=== PATIENT | female | born 1955 | race Caucasian/White ===

== ENCOUNTER 2016-06-03 | Outpatient (CLI) | payer OTHER | END 2016-06-03 17:39 | disposition critical access hospital (66) | CPT/HCPCS: A0425; A0429 ==

== ENCOUNTER 2016-06-03 | Emergency (ER) | payer OTHER | END 2016-06-03 18:39 | disposition home or self-care (01) ==

== ENCOUNTER 2020-03-29 20:59 | Outpatient (CLI) | payer MEDICARE, OTHER | END 2020-03-29 21:00 | disposition critical access hospital (66) | LOC: EMS 20:59 | PROVIDERS: ATTEND Surgery | DX: M25.572 Pain in left ankle and joints of left foot (principal) | CPT/HCPCS: A0425; A0429 ==

== ENCOUNTER 2020-03-29 22:04 | Emergency (ER) | payer MEDICARE, OTHER ==
--- NOTE | 2020-03-29 22:11 | ED Physician Documentation ---
PD HPI LOWER EXT INJURY - Stated complaint Stated Complaint: GLF - History obtained from History obtained from: Patient, EMS - History of Present Illness PD HPI LOW EXT INJURY LOCATION: Left, Ankle Type of injury: Twist (she was stepping down few steps with dog on lease and slipped, with twist of ankle. Pain with trying to step/stand. 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 No: Weakness, Numbness Similar symptoms before: Has not had sx before Recently seen: Not recently seen Review of Systems Constitutional: denies: Fever Nose: denies: Rhinorrhea / runny nose, Congestion Throat: denies: Sore throat Cardiac: denies: Chest pain / pressure Respiratory: denies: Cough GI: denies: Abdominal Pain, Nausea, Vomiting Neurologic: denies: Focal weakness, Numbness, Altered mental status, Head injury PD PAST MEDICAL HISTORY - Past Medical History Cardiovascular: None Respiratory: None Neuro: None Endocrine/Autoimmune: None Musculoskeletal: None - Present Medications Home Medications: Ambulatory Orders Medication Instructions Recorded Confirmed Fluticasone [Flonase] 1 spray NS Q8HR PRN 06/03/16 03/29/20 Hydrocodone/Acetaminophen [Rosamond 1 each PO Q6H PRN #15 tablet 03/29/20 5-325 Tablet] - Allergies Allergies/Adverse Reactions: Allergies Allergy/AdvReac Type Severity Reaction Status Date / Time epinephrine Allergy Unknown Verified 03/29/20 22:23 PD ED PE NORMAL - Vitals Vital signs reviewed: Yes - General General: Alert and oriented X 3, No acute distress, Well developed/nourished - HEENT HEENT: Atraumatic - Neck Neck: Supple, no meningeal sign, No bony TTP - Derm Derm: Normal color, Warm and dry - Extremities Extremities: Other (left ankle with mild swelling and tenderness both medially and laterally. Achilles firm and intact. Distal foot not tender. Proximal lower leg not tender. ) - Neuro Neuro: Alert and oriented X 3, No motor deficit, No sensory deficit, Normal speech Results - Vitals Vitals: Vital Signs - 24 hr 03/29/20 03/29/20 22:05 23:13 Temperature 36.7 C 36.5 C Heart Rate 86 83 Respiratory 14 18 Rate Blood Pressure 190/106 H 143/98 H O2 Saturation 97 100 Oxygen O2 Source Room air - Rads (name of study) left ankle Radiology: Prelim report reviewed (trimalleolar fracture without dislocation. ), See rad report Procedures - Splint (location) ankle fracture left Splint applied by: Tech Type of splint: Fiberglass, Posterior, Stirrup Other: Patient tolerated well, No complications, Neurovascular intact, Crutches provided (and Rx for knee scooter) PD MEDICAL DECISION MAKING - ED course Complexity details: reviewed results (trimalleolar fracture without dislocation.), considered differential (will get xray for suspected ankle fracture. She declined pain meds here. ), d/w patient, d/w automotive service consultant (CLARIFIER initially tried Dr. Bowie but no answer, then appeared not amortization clerk, but had Ortho call schedule had just not updated. So I did not talk with Dr. Bowie this evening. Will refer to Ortho Clinic. ) Departure - Departure Disposition: 01 Home, Self Care Clinical Impression: Trimalleolar fracture of ankle, closed Qualifiers: Encounter type: initial encounter Laterality: left Qualified Code(s): S82.852A - Displaced trimalleolar fracture of left lower leg, initial encounter for closed fracture Condition: Stable Record reviewed to determine appropriate education?: Yes Instructions: ED Fx Ankle General Follow-Up: Hernan Bowie MD [Provider Admit Priv/Credential] - Prescriptions: Hydrocodone/Acetaminophen [Rosamond 5-325 Tablet] 1 each PO Q6H PRN #15 tablet PRN Reason: Pain Comments: Ice elevate and rest the ankle often to minimize swelling. Crutches or knee scooter for nonweightbearing. Keep the splint in place. Use of anti-inflammatories such as naproxen or ibuprofen 2 to 3 tablets twice daily. To that add Tylenol 500 mg every 4 hours if needed for pain or hydrocodone if needed for worse pain. Call the orthopedic office tomorrow for an appointment for next week for follow- up. Discharge Date/Time: 03/29/20 23:48
[2020-03-29] MEDS ORDERED: HYDROcod/ACET 5/325 Prepack 4 PO STA (22:54)
[2020-03-29 23:14] VITALS: BP 143/98
--- NOTE | 2020-03-30 08:30 | XRAY Report ---
PROCEDURE: Ankle 3 View LT INDICATIONS: fell and twisted ankle TECHNIQUE: 3 views of the ankle were acquired. COMPARISON: None FINDINGS: Bones: Displaced fractures involving the lateral malleolus, medial malleolus and posterior malleolus. There is normal alignment of the ankle mortise. Soft tissues: No tibiotalar joint effusion. Achilles tendon appears normal. IMPRESSION: Trimalleolar left ankle fracture. Reviewed by: Diamond Boss MD, PhD on 03/30/2020 8:29 AM [facility] Approved by: Diamond Boss MD, PhD on 03/30/2020 8:29 AM [facility] Station ID: [id number]
== END 2020-03-29 23:48 | disposition home or self-care (01) ==
LOC: EDUNIT# → ED 22:04
DX: S82.852A Displaced trimalleolar fracture of left lower leg, initial encounter for closed fracture (principal); W00.1XXA Fall from stairs and steps due to ice and snow, initial encounter; Y93.K1 Activity, walking an animal; Y92.008 Other place in unspecified non-institutional (private) residence as the place of occurrence of the external cause
CPT/HCPCS: 29515; 99284

== ENCOUNTER 2020-04-05 06:15 | Day surgery (SDC) | payer MEDICARE, OTHER ==
[2020-04-05] MEDS ORDERED: ACETAMINOPHEN 1,000 MG/100 ML 100 ML IV ONE (06:30)
[2020-04-05] MEDS ORDERED: CELECOXIB 100 MG CAPSULE PO ONE (06:30)
[2020-04-05] MEDS ORDERED: ceFAZolin 2 GM/50 ML 2 GM/50 ML BAG IV ONE (06:30)
[2020-04-05] MEDS ORDERED: LIDOCAINE 2%-EPI 1:100000 20 ML MDV ONE (07:04)
[2020-04-05] MEDS ORDERED: BACITRACIN ZINC OINT 1 PACKET TOP ONE ×2 (07:05→08:29)
[2020-04-05] MEDS ORDERED: BUPIVACAINE 0.5%-EPI 1:200000 PF 30 ML VIAL ONE (07:05)
[2020-04-05] MEDS ORDERED: MIDAZOLAM 2 MG/2 ML VIAL ONE (07:10)
[2020-04-05] MEDS ORDERED: fentaNYL 100 MCG/2 ML VIAL ONE ×3 (07:10→10:08)
[2020-04-05] MEDS ORDERED: LIDOCAINE-MPF 2% 5 ML VIAL ONE (07:11)
[2020-04-05] MEDS ORDERED: PROPOFOL 200 MG/20 ML VIAL IVP ONE (07:11)
[2020-04-05] MEDS ORDERED: ROPIVACAINE 0.5% PF 20 ML AMPULE ONE (07:15)
--- NOTE | 2020-04-05 07:27 | ANESTHESIA ---
Pre-Anesthesia VS, & Labs - Diagnosis left trimalleolar fracture - Procedure ORIF left ankle Vital Signs: Temp Pulse Resp BP Pulse Ox 36.3 C L 81 20 152/93 H 97 04/05/20 06:30 04/05/20 06:30 04/05/20 06:30 04/05/20 06:30 04/05/20 06:30 Height: 5 ft 3 in Weight (kg): 89.5 kg Body Mass Index: 34.9 BMI Classification: Obese - NPO >8 hours - Is Patient ?: No - Lab Results Current Lab Results: Laboratory Tests 04/05/20 07:15: POC Whole Bld Glucose 128 H Home Medications and Allergies Fluticasone [Flonase] 1 spray NS Q8HR PRN 06/03/16 Allergies/Adverse Reactions: Allergies Allergy/AdvReac Type Severity Reaction Status Date / Time epinephrine Allergy Unknown Verified 03/29/20 22:23 Anes History & Medical History - Anesthetic History Anesthesia Complications: reports: No previous complications - Medical History Cardiovascular: reports: Hypertension Pulmonary: reports: Sleep apnea Gastrointestinal: reports: None Urinary: reports: None Neuro: reports: None Musculoskeletal: reports: None Endocrine/Autoimmune: reports: None Skin: reports: None Smoking Status: Never smoker History of Cancer?: No - Surgical History Eyes Ears Nose Throat (EENT): Other Gynecologic: section Exam General: Alert Dental: WNL Mouth Openin Fingerbreadth Neck Mobility: Normal Mallampati classification: II Thyromental Distance: greater than 6 cm Respiratory: Lungs clear Cardiovascular: Regular rate, Normal S1, Normal S2 Plan Anesthesia Type: General Consent for Procedure(s) Verified and Reviewed: Yes Code Status: Attempt Resuscitation ASA classification: 2-Mild systemic disease Is this case an emergency?: No
[2020-04-05 07:31] LABS: C. PNEUMONIAE- RESP PCR PANEL NOT DETECTED
[2020-04-05] MEDS ORDERED: DEXAMETHASONE 4 MG/ML VIAL ONE (08:21)
[2020-04-05] MEDS ORDERED: ONDANSETRON 4 MG/2 ML VIAL ONE (08:21)
[2020-04-05] MEDS ORDERED: ePHEDrine 50 MG/ML AMP IVP ONE (08:21)
[2020-04-05] MEDS ORDERED: SODIUM CHLORIDE 0.9% 10 ML ONE (08:22)
[2020-04-05] MEDS ORDERED: BUPIVACAINE 0.5%-EPI 1:200000 PF 30 ML VIAL SUBQ ONE (08:28)
[2020-04-05] MEDS ORDERED: LIDOCAINE MPF 2%-EPI 1:200000 20 ML VIAL SUBQ ONE (08:29)
[2020-04-05] MEDS ORDERED: ATROPINE ABBOJECT 1 MG/10 ML SYRINGE IVP PRN (09:30)
[2020-04-05] MEDS ORDERED: NALOXONE 0.4 MG/ML VIAL IVP PRN (09:30)
[2020-04-05] MEDS ORDERED: ePHEDrine 50 MG/ML VIAL IVP PRN (09:30)
[2020-04-05] MEDS ORDERED: HYDROmorphone 0.5 MG/0.5 ML SYRINGE IVP PRN (09:30)
[2020-04-05] MEDS ORDERED: ONDANSETRON 4 MG/2 ML VIAL IVP PRN (09:30)
[2020-04-05] MEDS ORDERED: METOCLOPRAMIDE 10 MG/2 ML VIAL IVP PRN (09:30)
[2020-04-05] MEDS ORDERED: MORPHINE 2 MG/ML CARPUJECT IVP PRN (09:30)
[2020-04-05] MEDS ORDERED: fentaNYL 100 MCG/2 ML VIAL IVP PRN (09:30)
[2020-04-05] MEDS ORDERED: LACTATED RINGERS 1,000 ML IV SCH (10:00)
[2020-04-05] MEDS ORDERED: BUPIVACAINE 0.25% PF 30 ML VIAL SUBQ ONE ×2 (10:54→11:12)
--- NOTE | 2020-04-05 11:00 | XRAY Report ---
PROCEDURE: OR C-Arm Procedure INDICATIONS: LEFT ANKLE ORIF TECHNIQUE: 3 intraoperative views of left ankle were obtained. COMPARISON: Ankle radiograph dated 03/29/2020. FINDINGS: Intraoperative radiograph of left ankle shows internal fixation of previously noted trimalleolar frac ture with fixation hardware is seen in distal fibular shaft/lateral malleolus, medial malleolus and p osterior malleolus. Ankle alignment is near-anatomic. IMPRESSION: Post ORIF changes in ankle joint with near-anatomic ankle alignment. Reviewed by: Philip Colón MD on 04/05/2020 10:59 AM PST Approved by: Philip Colón MD on 04/05/2020 10:59 AM PST Station ID: [id number]
[2020-04-05] MEDS ORDERED: BUPIVACAINE 0.25% PF 30 ML VIAL ONE (11:02)
[2020-04-05] MEDS ORDERED: BACITRACIN ZINC OINT 14 GM TOP ONE (11:08)
--- NOTE | 2020-04-05 11:29 | OPERATIVE REPORT ---
Operative Report - General Procedure Date: 04/05/20 Planned Procedure: Open reduction internal fixation trimalleolar fracture left ankle Pre-Op Diagnosis: Unstable, displaced trimalleolar fracture left ankle Procedure Performed: Open reduction internal fixation trimalleolar fracture left ankle including medial malleolus, lateral malleolus and posterior malleolus using Gu[employer] internal fixation; cancellous lag screw for posterior malleolus, 2 cancellous lag screws for medial malleolus, locking posterolateral fibular plate Post Op Diagnosis: Same as preoperative diagnosis - Procedure Note Primary Surgeon: Tripp Yu MD Secondary Surgeon: Brent REINA Anesthesia Provider: Ankush Anesthesia Technique: General ET tube, Regional block Estimated Blood Loss (mL): 50 Indications: This is a ambulatory 65-year-old relatively healthy woman with a fall that occurred last week. She sustained an isolated injury to her left ankle. She has been splinted, been nonweightbearing and elevating the left ankle. She has had a preoperative Covid testing. She has isolated pain, swelling, tenderness and limited motion left ankle. She has abnormal radiographs showing fractures of the medial, lateral and posterior malleoli.The ankle mortise was felt to be unstable to left ankle. Findings: The fracture of the fibula was above the ankle mortise and was in a Bleich fracture extending from posterior and distal to anterior and proximal. The fracture of the medial malleolus was at and just above the joint line, transverse in orientation. The posterior malleolus was a vertical fracture. There was mild comminution to the fibular fracture site. There was superficial abrasion about a centimeter to the medial dome of the left talus. Complications: None noted - Other Other Information/Narrative: Patient was brought to the operating room. She was given a popliteal and saphenous nerve block. She was placed in a supine position. A general an esthetic with endotracheal tube was administered by our retail project merchandiser. The left leg was placed on a padded bolster. A pneumatic tourniquet was applied to the proximal left thigh over cast padding and secured with a U drape. The left lower extremity was prepped and draped in a sterile manner in the usual fashion. A timeout procedure was performed by the entire operating room team and all were in agreement. The left leg was exsanguinated with a rubber bandage. The thigh tourniquet was elevated 250 mmHg. An incision was made on the lateral aspect the left ankle beginning from the tip of the lateral malleolus and extending it proximally for several centimeters. The incision was made on the posterior border of the fibula. The peroneal tendon was protected. The fracture site was identified. Fracture hematoma was removed with a curette and saline irrigation. The fibular fracture was reduced over a sterile bump. The fracture was then secured with a bone clamp and a intramedullary K wire inserted from the tip of the lateral malleolus. Proximally 7 hole posterolateral locking plate was then applied to the fibula. This plate seemed to span the fracture and give good stability with locking holes being utilized distally and a combination of both nonlocking and locking screws proximally. The fixation of the fracture was checked intermittently with the C arm image intensifier. The fracture stability and alignment looks excellent. Next to the medial malleolus was approached with a longitudinal medial incision beginning above the joint line and extending just below the medial malleolus distally. The saphenous vein was protected. A medial arthrotomy was made to visualize the fracture and inspect the ankle joint. A drill hole was made proximal to the fracture and a bone clamp was used to close the fracture gap with compression. K wires for the cannulated screws were then inserted from the tip of the medial malleolus and across the fracture. 2 wires were inserted and appropriate cancellous lag screws were then inserted to stabilize the medial malleolar fracture. The medial malleolar fracture was anatomically reduced on radiographs and also verified at the joint line through the medial arthrotomy incision. The ankle mortise was stressed with external rotation and the syndesmosis appeared to be stable. There was slight displacement of the posterior malleolar fracture. For this reason, a percutaneous approach was utilized to stabilize the posterior malleolar fracture. A 1 cm anterolateral incision was made over the distal tibia. A K wire was then inserted for cannulated screw using C arm image intensifier to direct the guidepin in biplanar and obilique images. Once the guidepin had been inserted appropriately, depth was obtained and a 4.0 mm can cellous lag screw was inserted that engaged the fracture site and posterior malleolus with anatomic alignment. The ankle mortise was then stressed and found to be stable. The wounds were thoroughly irrigated. Each wound was closed with 2 O strata fix suture and stainless steel jordan. Bacitracin, Xeroform, cast padding, thick cotton and plaster stirrup for short leg splint was applied and secured with Brando wrap. Tourniquet time was 85 minutes. She received 2 g of Ancef and tolerated the procedure well.A physician retail sales assistant was utilized to help with prepping and draping, positioning, retraction of vital structures, assistance in reduction and application of internal fixation left ankle
[2020-04-05] MEDS ORDERED: LACTATED RINGERS 20 ML IV ONE (11:52)
[2020-04-05] MEDS ORDERED: HYDROcod/ACETAM 5/325 MG TABLET PO PRN (12:02)
[2020-04-05] MEDS ORDERED: HYDROcod/ACETAM 10 MG/325 MG TABLET PO PRN (12:02)
[2020-04-05] MEDS ORDERED: KETOROLAC 15 MG/ML VIAL IVP STA (12:02)
[2020-04-05 12:49] VITALS: BP 153/90
--- NOTE | 2020-04-05 13:03 | ANESTHESIA POST OP EVALUATION ---
Anesthesia Post Eval - Post Anesthesia Eval Vitals: Last Vital Signs Temp 36.2 C L 04/05/20 12:38 Pulse 92 04/05/20 12:49 Resp 14 04/05/20 12:49 BP 153/90 H 04/05/20 12:49 Pulse Ox 96 04/05/20 12:49 CV Function Including HR & BP: positive: Stable Pain Control: positive: Satisfactory (no pain) Nausea & Vomiting: positive: Negative Mental Status: positive: Baseline Respiratory Status: Airway Patent Hydration Status: Satisfactory Anesthesia Complications: positive: None
== END 2020-04-05 06:16 | disposition home or self-care (01) ==
LOC: SDS 06:15
PROVIDERS: ATTEND Orthopaedic Surgery
DX: S82.852A Displaced trimalleolar fracture of left lower leg, initial encounter for closed fracture (principal); X50.1XXA Overexertion from prolonged static or awkward postures, initial encounter; Y93.K1 Activity, walking an animal; I10 Essential (primary) hypertension; G47.30 Sleep apnea, unspecified; Z20.828 Contact with and (suspected) exposure to other viral communicable diseases; E66.9 Obesity, unspecified; Z68.34 Body mass index [BMI] 34.0-34.9, adult; Z87.891 Personal history of nicotine dependence
CPT/HCPCS: 27823; A9270; C1713; J0131; J0690; J7120; 0202U

== ENCOUNTER 2020-05-19 18:41 | Outpatient (CLI) | payer MEDICARE, OTHER ==
--- NOTE | 2020-05-22 16:31 | XRAY Report ---
PROCEDURE: Ankle 3 View LT INDICATIONS: DISPLACED TRIMALLEOLAR FX OF L LOWER LEG TECHNIQUE: 3 views of the ankle were acquired. COMPARISON: X-ray ankle 03/29/2020 FINDINGS: Bones: ORIF of medial and lateral malleolar fractures is noted. Hardware is intact with good anatomic alignment. Posterior malleoli or fracture is also present, stable in alignment. Ankle mortise is nor angelo aligned. No suspicious bony lesions. Soft tissues: No tibiotalar joint effusion. Achilles tendon appears normal. IMPRESSION: Trimalleolar with fixation as above. Reviewed by: Laura Bowen MD on 05/22/2020 4:29 PM PST Approved by: Laura Bowen MD on 05/22/2020 4:29 PM PST Station ID: [id number]
== END 2020-05-19 23:59 | disposition home or self-care (01) ==
LOC: DI.N 18:41
PROVIDERS: ATTEND Orthopaedic Surgery
DX: S82.852A Displaced trimalleolar fracture of left lower leg, initial encounter for closed fracture (principal)

== ENCOUNTER 2021-03-13 12:45 | Outpatient (CLI) | payer MEDICARE, OTHER ==
--- NOTE | 2021-03-13 14:30 | XRAY Report ---
PROCEDURE: Ankle 3 View LT INDICATIONS: DISPLACED TRIMALLEOLAR FX OF L LOWER LEG TECHNIQUE: 3 views of the ankle were acquired. COMPARISON: 05/19/2020 FINDINGS: Bones: Again noted is prior ORIF of distal fibular shaft and medial malleolus. No gross hardware loos ening or failure. No acute fracture or dislocation. Ankle mortise is normally aligned. Osteoarthritic changes are noted in tibiotalar and subtalar joints. Well-defined plantar calcaneal enthesophyte is seen. No suspicious bony lesions. Soft tissues: No tibiotalar joint effusion. Achilles tendon appears normal. IMPRESSION: Post-ORIF changes in ankle joint unchanged from prior study. No gross hardware complicat ion. No acute fracture or dislocation. Intact ankle mortise. Ankle and hindfoot joint osteoarthritis. Well-defined calcaneal enthesophyte. Reviewed by: Philip Colón MD on 03/13/2021 2:29 PM PST Approved by: Philip Colón MD on 03/13/2021 2:29 PM PST Station ID: [id number]
== END 2021-03-13 23:59 | disposition home or self-care (01) ==
LOC: DI.N 12:45
PROVIDERS: ATTEND Orthopaedic Surgery
DX: M19.072 Primary osteoarthritis, left ankle and foot (principal); M77.32 Calcaneal spur, left foot

== ENCOUNTER 2022-08-12 10:43 | Outpatient (CLI) | payer MEDICARE, OTHER ==
[2022-08-12 21:36] VITALS: BP 167/108
--- NOTE | 2022-08-12 21:36 | SLEEP CARE CONSULTATION ---
Information from patient questionnaire entered by Elisa Ortega. I have reviewed and concur with the information entered by Elisa Ortega. This document represents the service I personally performed and the decisions made by me, Toney Vizcaino MD, [facility]. History of Present Illness Service Date and Time: 08/12/2022 1043 Reason for Visit: New patient Additional HPI information: I had the pleasure of seeing Ms. Bishop today regarding obstructive sleep apnea-hypopnea. As you know, she is a 67-year-old lady who was diagnosed with the sleep-disordered breathing at [facility] over 15 years ago. The report is not available for review. She was prescribed a CPAP device. Her ResMed AirSense 10 is her third machine. It is set at 8 16 cmH2O. She uses every night and all night. The compliance data show usage in 30 out of the past 30 nights, averaging 9.3 hours a night. The residual AHI is 1.3. She wears a Respironics DreamWear nasal cushion mask. She gets her supplies from [employer]. She finds the treatment very beneficial. Past Medical History Past Medical History: reports: Other (allergic rhinitis) Social History The patient's occupation is a RE. Patient is and lives in [place]. Allergies and Home Medications Drug allergies reviewed: Yes Home medication list reviewed: Yes Allergy and home medication list: Allergies epinephrine Allergy (Verified 08/09/22 08:45) Unknown States, "heart racing- effect of this meds" Review of Systems Cardiovascular: denies: high blood pressure, palpitations, chest pain, irregular heart rate or pulse, leg or foot swelling, have to sleep sitting up, other Respiratory: denies: shortness of breath, wheeze, sputum production, chronic cough, other Gastrointestinal: denies: heartburn, difficulty swallowing, nausea, vomitting, diarrhea, abdominal pain, other Urinary: denies: incontinence, frequency, urgency, impotence, other Neurological: denies: headaches, seizure, head trauma, disorientation, speech dysfunction, gait or balance problems, fainting or unconsciousness, other Psychiatric: denies: Attention Deficit Hyperactivity, anxiety, depression, mood disorder, claustrophobia, other Ear/Nose/Throat: reports: nasal congestion Endocrine: denies: thyroid disease, history of goiter, sluggishness, too hot or cold, excessive thirst, increased appetite, increased urination, unexplained weakness, other Physical Exam Vital signs obtained and entered by: Belgica Vizcaino Blood Pressure: 167/108 Cuff size: regular Heart Rate: 80 O2 Saturation: 95 Height: 5 ft 4 in Weight: 170 lb Body Mass Index: 29.2 BMI Classification: Overweight Neck circumference: 15.5 Mood/affect: normal HEENT: No craniofacial malformation Nostrils: patent to airflow Turbinates: normal Septum: midline Mouth and throat: narrow oropharynx Soft palate: long Hard palate: normal Uvula visualization: 50% Mallampati Class II Tongue: normal in size Tonsils: small Chin and jaw: normal size and position Neck: normal w/o lymphadenopathy or thyromegaly Heart: regular rate and rhythm Lungs: clear bilaterally Extremities: no edema or clubbing Neurologic: intact Impression and Plan IMPRESSION: 1. Obstructive Sleep Apnea-Hypopnea Syndrome, as previously diagnosed. The severity is unknown. She is doing very well on the CPAP therapy. The current pressure setting appears effective and comfortable. Narrow oropharynx and obesity are common predisposing factors for obstructive sleep apnea-hypopnea syndrome. I will order her more supplies provided that we can get hold of her diagnostic in-laboratory polysomnography report from [facility]. If unable, she will have to undergo another in- laboratory polysomnography here. Plan: 1. Obtain her sleep records from [facility] in [place]. 2. Continue with the autoCPAP at the current setting. 3. Try to lose weight. 4. Return for a follow up in one year or earlier if she requires a new sleep study. Counseling Topics: Weight control Prescriptions: Device supplies Follow up with Sleep Care in: 1 year Visit Type: In Office Time Spent with Patient (minutes): 15 Provider Statement: I spent 100% of the Face to Face Visit with the patient with greater than 50% spent counseling the patient and coordination of care.
== END 2022-08-12 10:44 | disposition home or self-care (01) ==
LOC: SC 10:43
PROVIDERS: ATTEND Internal Medicine Pulmonary Disease
DX: G47.33 Obstructive sleep apnea (adult) (pediatric) (principal)
CPT/HCPCS: 99202; G0463; 99212

== ENCOUNTER 2023-08-25 10:56 | Outpatient (CLI) | payer MEDICARE, OTHER ==
--- NOTE | 2023-08-25 11:24 | SLEEP CARE CONSULTATION ---
Information from patient questionnaire entered by Erma Ortega. I have reviewed and concur with the information entered by Erma Ortega. This document represents the service I personally performed and the decisions made by me, Toney Vizcaino MD, [facility]. History of Present Illness Service Date and Time: 08/25/2023 1056 Reason for follow up: annual (LAST SEEN 08/2022 NO CPAP) HPI additional information: Ms. Bishop returned today for follow up of nasal CPAP therapy. She was diagnosed with severe obstructive sleep apnea-hypopnea syndrome at [facility] in [place] 14 years ago. The [facility]. She wears an Respironics DreamWear nasal cushion mask. She reports using the device nightly and all through the night. The compliance report shows usage in 365 nights out of the past 365 nights, averaging 10 hours a night. She complained of no particular problem with the device such as soreness on the face, dry nose, epistaxis, nasal congestion or headache. She thinks that the pressure of 8 - 16 cmH2O is comfortable. On the CPAP therapy she notices improvement in her sleep quality, and that she wakes up feeling fresher in the morning and more awake/alert during the day. The [place] Sleepiness Scale score 1. Her notices no snore at all. The average residual AHI is 1.8; and air leak, 0 L/min. The 90th percentile pressure is 12 cmH2O. Subjective Current [place] Sleepiness Scale score: 1 (08/25/23) Allergies and Home Medications Drug allergies reviewed: Yes Home medication list reviewed: Yes Allergy and home medication list: Allergies epinephrine Allergy (Verified 08/21/23 09:38) Unknown States, "heart racing- effect of this meds" Review of Systems Review of systems same as previous: Yes (NO CHANGE) Physical Exam Vital signs obtained and entered by: ERMA [place] Blood Pressure: 167/112 (LEFT ARM) Cuff size: long Heart Rate: 81 O2 Saturation: 97 Height: 5 ft 4 in Weight: 181 lb Body Mass Index: 31.0 BMI Classification: Obese Impression and Plan IMPRESSION: 1. Obstructive Sleep Apnea-Hypopnea Syndrome, severe (AHI was 43.1 in 2009) with the patient doing well on nasal CPAP therapy. She has excellent compliance and significant clinical improvement. The current pressure appears effective and comfortable. Overall, she is very satisfied with the treatment and plans to continue with it long-term. No adjustment is necessary today. PLAN: 1. Continue with nasal CPAP therapy with 8 - 16 cmH2O. 2. Try to lose weight 3. Return in one year for follow up or earlier if there is any problem with the treatment. She will be eligible for a new machine next February. Continue with device pressure at (cmH2O): 8-16 Counseling Topics: Weight loss health impact, Weight control Follow up with Sleep Care in: 1 year Follow up recommended for: Weight management Visit Type: In Office Time Spent with Patient (minutes): 15 Provider Statement: I spent 100% of the Face to Face Visit with the patient with greater than 50% spent counseling the patient and coordination of care.
[2023-08-25 11:28] VITALS: BP 167/112; O2SAT 97
== END 2023-08-25 10:57 | disposition home or self-care (01) ==
LOC: SC 10:56
PROVIDERS: ATTEND Internal Medicine Pulmonary Disease
DX: G47.33 Obstructive sleep apnea (adult) (pediatric) (principal); E66.9 Obesity, unspecified; Z68.31 Body mass index [BMI] 31.0-31.9, adult
CPT/HCPCS: 99212; G0463